=== PATIENT | male | born 1965 | race Caucasian/White ===

== ENCOUNTER → 2017-04-12 | Outpatient (CLI) | payer BC ==
--- NOTE | 2017-04-12 10:28 | KCIC ---
EXAM: Thoracic spine, 2 views. HISTORY: Pain. COMPARISON: None. FINDINGS: Frontal and lateral views of the thoracic spine are obtained. There is no there is minimal decreased anterior vertebral body height at T11, degenerative in etiology. There is mild endplate remodeling and spurring primarily at the lower thoracic levels. IMPRESSION: 1. Mild degenerative change predominantly at the lower thoracic levels. 2. No acute osseous finding. Electronically signed by: Blossom Cardenas MD (04/12/2017 10:25 AM) [facility]
== END | disposition home or self-care (01) ==
LOC: KCIC 10:06
PROVIDERS: ATTEND Family Medicine
DX: M47.894 Other spondylosis, thoracic region (principal)
CPT/HCPCS: 72072

== ENCOUNTER → 2019-03-26 | Outpatient (CLI) | payer BC ==
[~2019-03-26] MED LIST: ANTI-COAG MONITOR BY PHARMACY. MC PRN; IOHEXOL 240 MG/ML 50ML VIAL. PO ONE; IOHEXOL 300 MG/ML 100ML VIAL. IV ONE
--- NOTE | 2019-03-26 13:55 | KCIC ---
PQRS Compliance Statement: One or more of the following individualized dose reduction techniques were utilized for this examination: 1. Automated exposure control 2. Adjustment of the mA and/or kV according to patient size 3. Use of iterative reconstruction technique CT abdomen with contrast 03/26/2019 11:30 AM INDICATION: Pancreatitis COMPARISON: None available TECHNIQUE: Multiple axial CT images of the abdomen were obtained after the intravenous administration of 100 mL Omnipaque 300. Coronal and sagittal reformats are provided. FINDINGS: Lung bases are clear. Heart size is within normal limits. There is mild hepatic steatosis. Hyperattenuation along the gallbladder fossa may reflect focal fatty sparing. Spleen and bilateral adrenal glands are normal in appearance. Mild fatty through the pancreas. No peripancreatic inflammatory changes. The abdominal aorta is normal in course and caliber. There are no pathologically enlarged lymph nodes in the abdomen and pelvis. There is no abdominal free fluid. There is no free intraperitoneal air. The kidneys enhance symmetrically. There is no suspicious renal mass. There is no hydronephrosis. There are no suspected calculi within the kidneys and ureters. Oral contrast was administered. Opacified bowel loops demonstrate normal mucosal fold pattern. Small and large bowel are normal in caliber. There is no evidence for bowel obstruction. There are no pericolonic inflammatory changes. No suspicious osseous abnormality. IMPRESSION: Mild fatty atrophy of the pancreas without peripancreatic inflammatory changes. Diffuse hepatic steatosis with focal fatty sparing along the gallbladder fossa. Cholecystectomy changes without intrahepatic or extrahepatic biliary ductal dilatation. Electronically signed by: Qian Pineda MD (03/26/2019 1:52 PM) [facility]
== END | disposition home or self-care (01) ==
LOC: KCIC CT 10:21
PROVIDERS: ATTEND Family Medicine
DX: K76.0 Fatty (change of) liver, not elsewhere classified (principal); K85.90 Acute pancreatitis without necrosis or infection, unspecified; K86.89 Other specified diseases of pancreas; K82.8 Other specified diseases of gallbladder; Z90.49 Acquired absence of other specified parts of digestive tract
CPT/HCPCS: 74160; Q9966; Q9967

== ENCOUNTER → 2019-08-07 | Outpatient (CLI) | payer BC ==
--- NOTE | 2019-08-07 16:43 | KCIC ---
EXAM: Right elbow, 2 views; right forearm, 2 views. HISTORY: Pain. COMPARISON: None. FINDINGS: 2 views of the right elbow and forearm are obtained. There is no fracture, dislocation or subluxation. There is no elbow effusion. There is no periosteal reaction or suspicious lytic or sclerotic osseous lesion. IMPRESSION: No acute osseous finding. Electronically signed by: Blossom Cardenas MD (08/07/2019 4:41 PM) [facility] [place]
--- NOTE | 2019-08-07 16:43 | KCIC ---
EXAM: Right elbow, 2 views; right forearm, 2 views. HISTORY: Pain. COMPARISON: None. FINDINGS: 2 views of the right elbow and forearm are obtained. There is no fracture, dislocation or subluxation. There is no elbow effusion. There is no periosteal reaction or suspicious lytic or sclerotic osseous lesion. IMPRESSION: No acute osseous finding. Electronically signed by: Blossom Cardenas MD (08/07/2019 4:41 PM) [facility] [place]
== END | disposition home or self-care (01) ==
LOC: KCIC 15:33
PROVIDERS: ATTEND Family Medicine
DX: M79.631 Pain in right forearm (principal); M25.521 Pain in right elbow
CPT/HCPCS: 73070; 73090

== ENCOUNTER → 2020-10-07 | Outpatient (CLI) | payer BC ==
[~2020-10-07] MED LIST changes: -ANTI-COAG MONITOR BY PHARMACY. MC PRN; -IOHEXOL 240 MG/ML 50ML VIAL. PO ONE; -IOHEXOL 300 MG/ML 100ML VIAL. IV ONE; +ZOLPIDEM 5 MG TABLET. PO ONE
--- NOTE | 2020-10-08 11:31 | SLEEP ---
DATE OF STUDY: 10/07/2020 SLEEP STUDY ATTENDING PHYSICIAN: Dr. Pavel Calderon The patient is a 55-year-old who weighs 240 pounds with a BMI of 41. The patient's [place] score was 17. The patient underwent split night study performed at [facility]. During the night study, the patient spent 409 minutes in bed and slept for 324 minutes with a sleep efficiency of 79%. Sleep latency was 19 minutes with a REM latency of 171 minutes. Sleep architecture showed normal stage I and stage II sleep, increased slow wave and slightly reduced REM sleep, which is 15% of total sleep time. During the initial diagnostic portion of the study, the patient slept for 75 minutes. During that time, the patient had 1 obstructive apnea, no mixed apneas, 6 central apneas and 43 hypopneas. The patient's AHI was 40 per hour. Supine or REM sleep was not seen during the diagnostic portion. EKG monitoring revealed normal sinus rhythm with an average heart rate of 82 beats per minute. No sustained arrhythmias observed. Nocturnal oximetry study revealed an average oxygen saturation of 92% with a lowest of 85%. 22% of the time, oxygen saturation remained between 80 and 89%. PLMS were seen at an index of 22 per hour and 2 per hour caused EEG arousals. The patient was started on CPAP at a pressure of 9 cm of water as the patient was unable to tolerate lower pressure. At a final pressure of 17 cm of water, the patient slept for 109 minutes. The patient had lateral REM sleep. The patient's AHI was reduced to 3 per hour and oxygen saturation remained above 89%. The patient used a medium size full face mask. IMPRESSION: 1. Severe obstructive sleep apnea at an AHI of 40 per hour. 2. Nocturnal hypoxia secondary to obstructive sleep apnea, but resolved with CPAP. 3. Mild to moderate PLMS without any significant EEG arousals. This does not need to be treated unless the patient has symptoms of restless legs during the day. RECOMMENDATIONS: 1. CPAP at 17 cm water completely eliminated the patient's sleep apnea, should be used on a nightly basis. 2. Follow up in 4-6 weeks to assess compliance with CPAP and to document clinical improvement. 3. Weight loss is advised. 4. Avoid [employer] depressants. 5. Cautioned regarding driving until symptoms of sleep apnea resolves with the use of CPAP. JERRI DR: Chris TID: [id number] CC: PAVEL CALDERON MD
== END ==
LOC: RT 19:06
PROVIDERS: ATTEND Family Medicine
DX: G47.33 Obstructive sleep apnea (adult) (pediatric) (principal); G47.34 Idiopathic sleep related nonobstructive alveolar hypoventilation; G47.61 Periodic limb movement disorder
CPT/HCPCS: 95810